=== PATIENT | female | born 1945 | race Caucasian/White ===

== ENCOUNTER 2022-07-31 14:04 | Inpatient (IN) | payer OTHER ==
[~2022-07-31] VITALS: Ht 157.5 cm; Wt 78.9 kg
--- NOTE | 2022-07-31 14:04 | NUR ---
PT BIBA ALS ER BED 9
[2022-07-31 14:18] VITALS: BP 155/85
[2022-07-31] MEDS ORDERED: NACL 0.9% 1,000 ML IV ONE (14:25)
[2022-07-31 15:24] LABS: BASOPHILS # (AUTO) 0.1 K/uL (0.00-0.22); BASOPHILS % (AUTO) 1.4 % (0.0-2.0); EOSINOPHILS # (AUTO) 0.3 K/uL (0-0.4); EOSINOPHILS % (AUTO) 5.4 % (0.0-4.0); HEMATOCRIT 38.8 % (36-48); HEMOGLOBIN 12.6 g/dL (12.0-16.0); LYMPHOCYTES # (AUTO) 0.6 K/uL (2.5-16.5); LYMPHOCYTES % (AUTO) 11.6 % (20.5-51.1); MEAN CORPUSCULAR HEMOGLOBIN 34 pg (27-31); MEAN CORPUSCULAR HGB CONC 32 g/dL (33-37); MEAN CORPUSCULAR VOLUME 103.3 fL (80-94); MONOCYTES # (AUTO) 0.5 K/uL (0.8-1.0); MONOCYTES % (AUTO) 8.4 % (1.7-9.3); NEUTROPHILS % (AUTO) 73.2 % (42.2-75.2); PLATELET COUNT (AUTO) 147 K/uL (140-450); RED BLOOD CELL COUNT(AUTO) 3.76 MIL/uL (4.20-5.40); RED CELL DISTRIBUTION WIDTH 15.2 % (11.6-13.7); WHITE BLOOD COUNT (AUTO) 5.4 K/uL (4.8-10.8)
[2022-07-31 15:34] LABS: ALBUMIN 3.4 g/dL (3.4-5.0); ANION GAP 14.6 (8-16); ASPARTATE AMINOTRANSFERASE 70 U/L (15-37); CHLORIDE 95 mmol/L (98-107); CREATININE 3.3 mg/dL (0.6-1.3); POTASSIUM 4.6 mmol/L (3.5-5.1); SODIUM SERUM 133 mmol/L (136-145); TOTAL BILIRUBIN 0.8 mg/dL (0.0-1.0); UREA NITROGEN, BLOOD 36 mg/dL (7-18)
[2022-07-31 15:37] LABS: GLUCOSE 424 mg/dL (74-106)
[2022-07-31 15:41] LABS: LIPASE 61 U/L (73-393)
[2022-07-31] MEDS ORDERED: PANT40EC PO (17:56)
[2022-07-31] MEDS ORDERED: AMLO10TA PO (17:56)
[2022-07-31] MEDS ORDERED: ATOR40TA40 PO (17:56)
[2022-07-31] MEDS ORDERED: LEVO0.155 PO (17:56)
[2022-07-31] MEDS ORDERED: FAMO-90 PO (17:56)
[2022-07-31] MEDS ORDERED: GABA300C PO (17:56)
[2022-07-31] MEDS ORDERED: VITA1TAB44 PO (17:56)
[2022-07-31] MEDS ORDERED: LOSA100T51 PO (17:56)
[2022-07-31] MEDS ORDERED: FURO-570 PO (17:56)
[2022-07-31] MEDS ORDERED: OXCA300T26 PO (17:56)
[2022-07-31] MEDS ORDERED: HYDR-1098 PO (17:56)
--- NOTE | 2022-07-31 19:15 | NUR ---
ASSUME CARE OF PT, PT ADMITTED GENERALIZED WEAKNESS, PT MISSED DIALYSIS TODAY DUE TO GENERALIZED WEAKNESS, PT HAS DIALYSIS M/W/F. WAITING FOR TELE BED TO BE AVAILABLE.
[2022-07-31] MEDS ORDERED: guaiFENesin DM 200/20 MG-10 ML 10 ML UDC PO PRN (19:40)
[2022-07-31] MEDS ORDERED: POTASSIUM CHLORIDE 10 MEQ TABER PO PRN (19:40)
[2022-07-31] MEDS ORDERED: DOCUSATE SODIUM 100 MG GELCAP PO PRN (19:40)
[2022-07-31] MEDS ORDERED: HYDROcodone/APAP 7.5/325 MG 1 TAB PO PRN (19:40)
[2022-07-31] MEDS ORDERED: ZOLPIDEM 5 MG TAB PO PRN (19:40)
[2022-07-31] MEDS ORDERED: ONDANSETRON 4 MG/2 ML VIAL IM/IVP PRN (19:40)
[2022-07-31] MEDS ORDERED: ACETAMINOPHEN 325 MG TAB PO PRN (19:40)
[2022-07-31 20:08] LABS: CHOL/HDL RATIO 1.4 (1-4.5); FREE T4 (FREE THYROXINE) 1.26 ng/dL (0.76-1.46); MAGNESIUM 2.2 mg/dL (1.8-2.4); PHOSPHORUS 3.6 mg/dL (2.5-4.9); THYROID STIMULATING HORMONE 1.14 uIU/mL (0.34-3.74)
--- NOTE | 2022-07-31 20:41 | NUR ---
Patient will be admitted to care of DR BECKWITH. Admited to TELE. Will go to room 114. Belongings list completed. Report to EMIL OROSCO.
[2022-07-31 20:50] VITALS: BP 140/91
[2022-07-31 20:50] LABS: PROTHROMBIN TIME 11.6 secs (10.8-13.4)
--- NOTE | 2022-07-31 20:50 | NUR ---
RECEIVED PT AAOX4 FROM ER/ [place] [facility] TO BED , AAOX4 , NID - RA - O2 SAT WNL , ON TELE MONITOR , IV SITE INTACT AND PATENT , ADMISSION ASSESSMENT DONE , PLAN OF CARE DISCUSSED AND VERBALIZES UNDERSTANDING . PUT PT ON FALL PREVENTION PROTOCOL , CALL LIGHT WITHIN REACH . WILL CONT. TO MONITOR .
--- NOTE | 2022-07-31 21:00 | NUR ---
RELAYED DR. BECKWITH THE RESULT OF PTT - PER DR. BECKWITH NO FURTHER ORDERS .
[2022-07-31] MEDS: BLOOD GLUCOSE MONITORING 1 DEV DEV FS SCH (21:37)
[2022-07-31] MEDS: INSULIN LISPRO SLIDING SCALE 100 UNITS/ML VIAL SUBQ PRN (21:43)
--- NOTE | 2022-07-31 23:20 | NUR ---
PT . MISSED HER HD TODAY DUE TO FEELING OF FATIGUE AND BODY WEAKNESS , INFORM DR. DANIELS ORDERED BY DR. BECKWITH . LATEST BUN 36 , CREA 3.3 . CHARGE NURSE AWARE .
[2022-08-01] VITALS: BP 150/90
--- NOTE | 2022-08-01 00:30 | NUR ---
ROUNDS , ON TELE MONITOR , NO S/SX OF ACUTE DISTRESS NOTED , CALL LIGHT WITHIN REACH .
--- NOTE | 2022-08-01 02:00 | NUR ---
inform dr Mansoor robertson - pt. missed hd - will wait response .
[2022-08-01 04:00] VITALS: BP 154/90
--- NOTE | 2022-08-01 04:00 | NUR ---
rounds , no s/sx of acute distress .
--- NOTE | 2022-08-01 06:30 | NUR ---
inform dr Mansoor perez no response from dr savage even even msg , direct contact . , paged .
[2022-08-01 06:56] LABS: ANION GAP 12.6 (8-16); CHLORIDE 98 mmol/L (98-107); CREATININE 3.3 mg/dL (0.6-1.3); GLUCOSE 197 mg/dL (74-106); POTASSIUM 4.6 mmol/L (3.5-5.1); SODIUM SERUM 136 mmol/L (136-145); UREA NITROGEN, BLOOD 39 mg/dL (7-18)
[2022-08-01] MEDS: INSULIN LISPRO SLIDING SCALE 100 UNITS/ML VIAL SUBQ PRN ×4 (06:56→21:35)
[2022-08-01] MEDS: BLOOD GLUCOSE MONITORING 1 DEV DEV FS SCH ×4 (06:56→21:35)
[2022-08-01 07:03] LABS: BASOPHILS # (AUTO) 0.1 K/uL (0.00-0.22); BASOPHILS % (AUTO) 1.5 % (0.0-2.0); EOSINOPHILS # (AUTO) 0.6 K/uL (0-0.4); EOSINOPHILS % (AUTO) 11.9 % (0.0-4.0); HEMATOCRIT 38.3 % (36-48); HEMOGLOBIN 12.5 g/dL (12.0-16.0); LYMPHOCYTES # (AUTO) 0.9 K/uL (2.5-16.5); LYMPHOCYTES % (AUTO) 17.1 % (20.5-51.1); MEAN CORPUSCULAR HEMOGLOBIN 33 pg (27-31); MEAN CORPUSCULAR HGB CONC 33 g/dL (33-37); MEAN CORPUSCULAR VOLUME 101.4 fL (80-94); MONOCYTES # (AUTO) 0.5 K/uL (0.8-1.0); MONOCYTES % (AUTO) 9.4 % (1.7-9.3); NEUTROPHILS # (AUTO) 3.2 K/uL (1.8-7.7); NEUTROPHILS % (AUTO) 60.1 % (42.2-75.2); PLATELET COUNT (AUTO) 140 K/uL (140-450); RED BLOOD CELL COUNT(AUTO) 3.77 MIL/uL (4.20-5.40); RED CELL DISTRIBUTION WIDTH 14.9 % (11.6-13.7); WHITE BLOOD COUNT (AUTO) 5.3 K/uL (4.8-10.8)
--- NOTE | 2022-08-01 07:58 | NUR ---
dr Mansoor robertson replied - inform dr perez . dr robertson talked the nurse erickson . Addendum: 08/01/22 at 0807 by Dorothea Palomo RN endorsed pt stable .
[2022-08-01 08:00] VITALS: BP 146/87
[2022-08-01 08:07] LABS: T4 (THYROXINE) 7.4 ug/dL (4.5-12.0)
[2022-08-01] MEDS: PANTOPRAZOLE 40 MG TABEC PO SCH (09:37)
--- NOTE | 2022-08-01 11:48 | NUR ---
PATIENT HAS BEEN SCREENED AND CATEGORIZED MODERATE NUTRITION RISK. PATIENT WILL BE SEEN WITHIN 3-5 DAYS OF ADMISSION. 08/03/[address]
[2022-08-01 12:00] VITALS: BP 146/87
[2022-08-01] MEDS ORDERED: diphenhydrAMINE 50 MG/ML VIAL IVP SCH (14:50)
--- NOTE | 2022-08-01 19:50 | NUR ---
RECEIVED REPORT FROM AM NURSE ANDREW RN FOR CONTINUITY OF CARE. PT IS STABLE IN BED. A&OX4. 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 DENIES PAIN AT THIS TIME. ON RM AIR/O2 WITH NO ACUTE DISTRESS. RR EVEN AND UNLABORED WITH EQUAL CHEST RISE. GI INTACT. ON A RENAL DIET. HEMODIALYSIS PT. L UA AV SHUNT WITH GOOD THRILL.PT'S SKIN IS INTACT. AMBULATES WITH 1 PERSON ASSIST. ALL SAFETY MEASURES IN PLACE. BED IN LOW AND LOCKED POSITION. CALL LIGHT WITHIN REACH. WILL CONTINUE TO MONITOR. S/P DIALYSIS 08/01/22. HAD 3 LITERS OFF.
[2022-08-01 20:00] VITALS: BP 136/81
--- NOTE | 2022-08-01 21:30 | NUR ---
GM=[id number] COVERED WITH 2UNITS HUMALOG SLIDING SCALE INSULIN.
--- NOTE | 2022-08-01 23:35 | NUR ---
C/O INCESSANT ITCHING. RECEIVED BENADRYL 1 TAB PO WITH MODERATE RELIEF AFTER 30 MINUTES.
[2022-08-02] VITALS: BP 129/86
[2022-08-02 04:00] VITALS: BP 117/87
[2022-08-02] MEDS: BLOOD GLUCOSE MONITORING 1 DEV DEV FS SCH ×4 (06:18→21:02)
[2022-08-02] MEDS: INSULIN LISPRO SLIDING SCALE 100 UNITS/ML VIAL SUBQ PRN ×4 (06:18→21:04)
--- NOTE | 2022-08-02 06:30 | NUR ---
BS= 239 COVERED WITH 4 UNITS HUMALOG INSULIN PER SLIDING SCALE.
[2022-08-02 06:55] LABS: ANION GAP 13.3 (8-16); CARBON DIOXIDE 29.4 mmol/L (21-32); CHLORIDE 98 mmol/L (98-107); CREATININE 2.7 mg/dL (0.6-1.3); GLUCOSE 259 mg/dL (74-106); POTASSIUM 4.7 mmol/L (3.5-5.1); SODIUM SERUM 136 mmol/L (136-145); UREA NITROGEN, BLOOD 26 mg/dL (7-18)
[2022-08-02 07:08] LABS: BASOPHILS # (AUTO) 0.1 K/uL (0.00-0.22); BASOPHILS % (AUTO) 1.9 % (0.0-2.0); EOSINOPHILS # (AUTO) 0.6 K/uL (0-0.4); HEMATOCRIT 38.5 % (36-48); HEMOGLOBIN 12.9 g/dL (12.0-16.0); LYMPHOCYTES # (AUTO) 0.8 K/uL (2.5-16.5); LYMPHOCYTES % (AUTO) 15.2 % (20.5-51.1); MEAN CORPUSCULAR HEMOGLOBIN 34 pg (27-31); MEAN CORPUSCULAR HGB CONC 34 g/dL (33-37); MEAN CORPUSCULAR VOLUME 101.1 fL (80-94); MONOCYTES # (AUTO) 0.4 K/uL (0.8-1.0); MONOCYTES % (AUTO) 8.4 % (1.7-9.3); NEUTROPHILS # (AUTO) 3.2 K/uL (1.8-7.7); NEUTROPHILS % (AUTO) 63.5 % (42.2-75.2); PLATELET COUNT (AUTO) 131 K/uL (140-450); RED BLOOD CELL COUNT(AUTO) 3.81 MIL/uL (4.20-5.40); RED CELL DISTRIBUTION WIDTH 15.3 % (11.6-13.7)
[2022-08-02 08:00] VITALS: BP 131/86
--- NOTE | 2022-08-02 08:00 | NUR ---
ENDORSED TO AM NURSE CLIVE OROSCO FOR CONTINUITY OF CARE. PT IS STABLE. ALL NEEDS MET THROUGHOUT THE SHIFT.
[2022-08-02] MEDS: PANTOPRAZOLE 40 MG TABEC PO SCH (08:31)
[2022-08-02 12:00] VITALS: BP 150/91
[2022-08-02] MEDS: hydrALAZINE 25 MG TAB PO SCH ×2 (12:21→16:36)
[2022-08-02 16:00] VITALS: BP 133/68
[2022-08-02 20:00] VITALS: BP 133/80
[2022-08-02] MEDS: diphenhydrAMINE 50 MG/ML VIAL IVP PRN (20:46)
[2022-08-02] MEDS: GABAPENTIN 300 MG CAP PO SCH (20:47)
[2022-08-03] VITALS: BP 131/76
[2022-08-03] MEDS: diphenhydrAMINE 50 MG/ML VIAL IVP PRN (05:32)
[2022-08-03] MEDS ORDERED: LEVOTHYROXINE 0.075 MG TAB PO SCH (06:30)
[2022-08-03] MEDS: BLOOD GLUCOSE MONITORING 1 DEV DEV FS SCH ×2 (06:34→11:38)
[2022-08-03] MEDS: INSULIN LISPRO SLIDING SCALE 100 UNITS/ML VIAL SUBQ PRN ×2 (06:34→11:43)
[2022-08-03 07:15] LABS: BASOPHILS # (AUTO) 0.1 K/uL (0.00-0.22); BASOPHILS % (AUTO) 1.2 % (0.0-2.0); EOSINOPHILS # (AUTO) 0.6 K/uL (0-0.4); EOSINOPHILS % (AUTO) 10.3 % (0.0-4.0); HEMATOCRIT 41.7 % (36-48); HEMOGLOBIN 13.6 g/dL (12.0-16.0); LYMPHOCYTES % (AUTO) 16.6 % (20.5-51.1); MEAN CORPUSCULAR HEMOGLOBIN 33 pg (27-31); MEAN CORPUSCULAR HGB CONC 33 g/dL (33-37); MEAN CORPUSCULAR VOLUME 102.2 fL (80-94); MONOCYTES # (AUTO) 0.4 K/uL (0.8-1.0); MONOCYTES % (AUTO) 7.3 % (1.7-9.3); NEUTROPHILS # (AUTO) 3.7 K/uL (1.8-7.7); NEUTROPHILS % (AUTO) 64.6 % (42.2-75.2); PLATELET COUNT (AUTO) 132 K/uL (140-450); RED BLOOD CELL COUNT(AUTO) 4.08 MIL/uL (4.20-5.40); RED CELL DISTRIBUTION WIDTH 15.5 % (11.6-13.7); WHITE BLOOD COUNT (AUTO) 5.8 K/uL (4.8-10.8)
--- NOTE | 2022-08-03 07:15 | NUR ---
RECEIVED REPORT FROM CARE SERVICES MANAGER NURSE FOR CONTINUITY OF CARE. PATIENT ASLEEP NO DISTRESS NOTED. RESPIRATION EVEN AND NOT LABORED NO SHORTNESS OF BREATH ON ROOM AIR. IV SITE ON RIGHT AC [place] 22 SALINE LOCK. PATIENT ALSO HAVE LEFT UPPER ARM AV SHUNT WILL HAVE DIALYSIS TODAY. ALL SAFETY MEASURE IN PLACE.
[2022-08-03 08:00] VITALS: BP 140/78
--- NOTE | 2022-08-03 08:00 | NUR ---
Patient's Plan of Care was discussed and reviewed with KINDRA: PIERRE
[2022-08-03 08:01] LABS: ANION GAP 15.4 (8-16); CARBON DIOXIDE 25.6 mmol/L (21-32); CHLORIDE 98 mmol/L (98-107); CREATININE 3.1 mg/dL (0.6-1.3); GLUCOSE 217 mg/dL (74-106); SODIUM SERUM 134 mmol/L (136-145); UREA NITROGEN, BLOOD 33 mg/dL (7-18)
[2022-08-03] MEDS ORDERED: amLODIPine 5 MG TAB PO SCH (09:00)
[2022-08-03] MEDS: hydrALAZINE 25 MG TAB PO SCH ×2 (09:17→13:34)
[2022-08-03] MEDS: GABAPENTIN 300 MG CAP PO SCH (09:17)
[2022-08-03] MEDS: PANTOPRAZOLE 40 MG TABEC PO SCH (09:18)
--- NOTE | 2022-08-03 09:18 | NUR ---
Patient finish eating breakfast given all due medication tolerated well.
--- NOTE | 2022-08-03 11:01 | NUR ---
P.T. NOTES P.T. EVAL COMPLETED; REFER TO EVAL FOR DETAILS.
--- NOTE | 2022-08-03 11:30 | NUR ---
PATIENT ON BED RESTING DESK REPORTER AT BED SIDE TALKING TO HER.
[2022-08-03 12:00] VITALS: BP 139/78
--- NOTE | 2022-08-03 12:28 | NUR ---
LUNCH SERVE TO HER. PATIENT IS GOING TO HAVE DIALYSIS AND INFORM HER THAT SHE HAS ORDER FOR DISCHARGE AFTER DIALYSIS.
[2022-08-03 12:58] VITALS: BP 139/78
--- NOTE | 2022-08-03 13:29 | NUR ---
DC PLANNING: FAXED THE HOME HEALTH REQUEST TO [facility]. CM TO FOLLOW Addendum: 08/03/22 at 1619 by Courtney Escamilla RN DC PLANNING: [facility] WILL ACCEPT PATIENT AND WILL START THE CARE 08/04/22 PHONE NUMBER [phone]. CM TO FOLLOW
--- NOTE | 2022-08-03 14:35 | NUR ---
PATIENT STILL ON GOING DIALYSIS ON STABLE CONDITION.
--- NOTE | 2022-08-03 16:15 | NUR ---
DIALYSIS DONE PATIENT ON STABLE CONDITION OBTAINED 2L OUT.
--- NOTE | 2022-08-03 17:29 | NUR ---
PATIENT ALERT ABLE TO MAKE NEEDS KNOWN GIVEN DISCHARGE PACKET WITH INSTRUCTION VERBALIZED UNDERSTANDING. ALL BELONGING GIVEN TO PATIENT. IV SITE REMOVED WITH CATHETER INTACT AND NAME BAND REMOVED. WHEELED PATIENT TO THEIR PRIVATE CAR CUTTING MACHINE TENDER BY .
== END 2022-08-03 17:30 | disposition home health service (06) | DRG 291 ==
LOC: MED 14:04 → MTU 17:50
PROVIDERS: ADMIT Family Medicine; ATTEND Family Medicine
PROC: 5A1D70Z Performance of Urinary Filtration, Intermittent, Less than 6 Hours Per Day (ICD-10-PCS; principal; 2022-08-01)
PROC: 5A1D70Z Performance of Urinary Filtration, Intermittent, Less than 6 Hours Per Day (ICD-10-PCS; 2022-08-03)
DX: I13.2 Hypertensive heart and chronic kidney disease with heart failure and with stage 5 chronic kidney disease, or end stage renal disease (principal); I50.43 Acute on chronic combined systolic (congestive) and diastolic (congestive) heart failure; N17.0 Acute kidney failure with tubular necrosis; N18.6 End stage renal disease; E87.1 Hypo-osmolality and hyponatremia; E11.22 Type 2 diabetes mellitus with diabetic chronic kidney disease; E11.65 Type 2 diabetes mellitus with hyperglycemia; Z99.2 Dependence on renal dialysis; Z79.899 Other long term (current) drug therapy
CPT/HCPCS: 36415; 71045; 80048; 80053; 82150; 82948; 83036; 83605; 83690; 83735; 83880; 84100; 84436; 84439; 84443; 84479; 84484; 85025; 85610; 85730; 87081; 93005; 96360; 97112; 97116; 99285; J1200; J2405; J7030; Q0092; Q0163